=== PATIENT | male | born 1980 | race Caucasian/White ===

== ENCOUNTER 2019-05-16 19:28 | Emergency (ER) | payer OTHER ==
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
[2019-05-16] MEDS ORDERED: ACETAMINOPHEN TAB 500 MG TAB PO STA (21:22)
[2019-05-16] MEDS ORDERED: Acetaminophen-Codeine 300-30mg TAB PO STA (21:35)
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
[2019-05-16 22:03] LABS: HCT 43.6 % (39.0-53.0); HGB 15.2 gm/dL (13.0-17.5); MCH 30.3 pg (25.0-35.0); MCV 86.8 fL (80.0-100.0); Mean Platelet Volume 7.6; Platelet Count 219 k/uL (150-450); RBC 5.02 m/uL (4.30-5.90); RDW 12.8 % (11.5-15.5); WBC 8.9 k/uL (3.8-10.6)
[2019-05-16 22:12] LABS: Chloride 105 mmol/L (98-107)
[2019-05-16 22:14] LABS: ALT 27 U/L (21-72); AST 27 U/L (17-59); African American GFR (CKD) >90 (>60 ml/min/1.73 sqM); Albumin 4.4 g/dL (3.5-5.0); Alkaline Phosphatase 89 U/L (38-126); Anion Gap 10 mmol/L; Blood Urea Nitrogen 12 mg/dL (9-20); Calcium 9.6 mg/dL (8.4-10.2); Carbon Dioxide 25 mmol/L (22-30); Glucose 97 mg/dL (74-99); Potassium 3.8 mmol/L (3.5-5.1); Sodium 140 mmol/L (137-145); Total Bilirubin 0.4 mg/dL (0.2-1.3); Total Protein 7.2 g/dL (6.3-8.2)
[2019-05-16] MEDS ORDERED: KETOROLAC 30 MG/ML 1 ML VIAL IM STA (22:28)
[2019-05-16 23:16] VITALS: BP 127/70; PULSE 77; RESP 18; TEMP 98
== END 2019-05-16 23:16 | disposition home or self-care (01) ==
LOC: EC 19:28
DX: S00.01XA Abrasion of scalp, initial encounter (principal); S40.211A Abrasion of right shoulder, initial encounter; S06.891A Other specified intracranial injury with loss of consciousness of 30 minutes or less, initial encounter; F17.200 Nicotine dependence, unspecified, uncomplicated; Z88.0 Allergy status to penicillin; Z53.29 Procedure and treatment not carried out because of patient's decision for other reasons; V89.2XXA Person injured in unspecified motor-vehicle accident, traffic, initial encounter; Y92.89 Other specified places as the place of occurrence of the external cause
CPT/HCPCS: 36415; 80053; 85027; 72110; 71046; 74018; 72125; 70450; 99284; 96372; J1885